=== PATIENT | female | born 2000 | race Caucasian/White ===

== ENCOUNTER 2024-12-28 22:37 | Emergency (ER) | payer BC, SELFPAY ==
[2024-12-28 22:39] VITALS: BP 158/106
--- NOTE | 2024-12-28 23:24 | ED.GENMED ---
History of Present Illness
General
Chief Complaint: Musculo-Skeletal Complaint
Source: patient
Exam Limitations: none
Time Seen by Provider: 12/28/24 23:01
Nursing documentation reviewed up to this point in time: agreed with
History of Present Illness
History of Present Illness:
The patient is a 24-year-old female with no significant past medical history who presents with right ankle pain after a fall down approximately two steps, which occurred one hour prior to the visit. The patient reports twisting the ankle during the
fall. There was no head injury reported. No loss of consciousness. This is the first time the patient has injured this ankle. The patient describes the pain as localized right lateral ankle with moderate soft tissue swelling right lateral ankle.
There is no pain in the knee, no foot pain. Patient was wearing sneakers when the fall occurred. She denies weakness or numbness, no back pain or neck pain. The area is swollen, and the pain is described as moderate.
She denies risk of , last menstrual period normal and on time 1 week ago.
She takes no medicines on a daily basis.
She has not taken anything for pain.
Past History
Past History
ED Past Medical History: Other (Overweight, thoracolumbar back pain)
ED Past Surgical History: None
Social History
Tobacco: Non-smoker
Alcohol: Occasional
Drug: None
Personal: Single
Living: with family
Employment: Employed
Family History
Family History: Other (Noncontributory)
Phy Exam
Physical Exam
Physical Exam:
GENERAL: This is a 24-year-old female who appears her stated age, bright and alert, pleasant, appears in no acute distress. Father is accompanying.
EYE: The head is normocephalic, atraumatic. anicteric
NECK: Supple, nontender
ENT: oral mucosa is moist. No rhinorrhea.
CARDIAC: Regular rate and rhythm. no murmur.
LUNGS: Clear breath sounds bilaterally, no acute respiratory distress, no wheezes/rales/rhonchi
ABDOMEN: Soft, nondistended, without focal tenderness
NEUROLOGICAL: Alert and oriented x3, no focal neuro deficits.
SKIN: Warm and dry, normal color, skin intact. No rash.
MUSCULOSKELETAL: No C/C/E. peripheral pulses are full and equal b/l. Right ankle with moderate soft tissue swelling lateral aspect with moderate tenderness to palpation lateral aspect. Mildly restricted range of motion of right ankle related to
pain. There is no tenderness to the lower leg nor knee nor tenderness to the foot. No ecchymosis.
PSYCH: Normal and appropriate interaction.
Course
Orders/Labs/Results
Orders:
Orders
12/28/24 22:43
Ankle, Right 3 view CR [CR Ankle - Right Min 3 Views *] Urgent
Comment:
Reason For Exam: FALL
12/28/24 23:22
Ice Pack-Treatment DIRECTED
Location: right lateral ankle
Ortho Boot Right- Treatment ONCE
Short or tall?: Tall
Splints/Slings/Crut- Treatment ONCE
Crutches: Yes
Ibuprofen [Motrin] 600 mg PO NOW STA
Vital Signs
Initial and Last Documented VS:
Initial Vital Signs
Temp Pulse Resp BP Pulse Ox
98.6 F 100 18 158/106 98
12/28/24 22:39 12/28/24 22:39 12/28/24 22:39 12/28/24 22:39 12/28/24 22:39
Last Documented Vital Signs
Temp Pulse Resp BP Pulse Ox
98.6 F 100 18 158/106 98
12/28/24 22:39 12/28/24 22:39 12/28/24 22:39 12/28/24 22:39 12/28/24 22:39
MDM/Problems Addressed
Differential Diagnosis Includes:
The Differential Diagnosis includes, in no particular order and is not limited to:
1. Ankle sprain (suspected anterior talofibular ligament)
2. Ankle fracture
3. Tendinopathy
4. Ligamentous injury
5. Contusion
6. [place]-Schlatter�s disease
7. Ankle dislocation
8. Syndesmotic injury
9. Achilles tendinitis
10. Osteochondritis dissecans
MDM/Problems Addressed:
Primary concern for right ankle sprain versus fracture.
X-ray obtained. Interpreted by myself shows no evidence of fracture. No dislocation. Mild soft tissue swelling laterally.
History, exam and x-ray consistent with acute right ankle sprain strain�talofibular ligament sprain.
Patient will be placed in an Ortho boot and provided with crutches. Weightbearing as tolerated.
Offered pain medication either injectable Toradol versus ibuprofen. She elects ibuprofen. Will provide prescription for ibuprofen as well.
Will place ice to ankle and recommend ice to the swollen area over the first 48 hours, followed by moist heat as needed.
Will refer to orthopedics for follow-up.
*Radiology
Radiology exam reviewed: preliminary read by ED provider (X-ray shows no evidence of fracture. Soft tissue swelling laterally)
*Pulse Oximetry
SaO2: 98
Oxygen Mode of Delivery: Room air
Patient hypoxic: no
*Critical Care Note
Total Time (30-74mins, 75-104mins- exclusive of procedures): Not Applicable
ED Attending Note
-
Portions of this chart may have been created with voice recognition software.� Occasional wrong word or��sound alike� substitutions may have occurred due to the inherent limitations of voice recognition software.
Discharge Plan
Departure
Patient Disposition: Home (Routine Discharge)
Date of Disposition: 12/28/24
Time of Disposition: 23:33
Patient with high blood pressure during this ER visit?: Yes
Condition: Good
Discharge Problem:
Inversion sprain of right ankle
Instructions: How to Use Crutches, Ankle sprain - ED (DC), BLOOD PRESSURE
Prescriptions:
New
ibuprofen 600 mg tablet
600 mg PO Q6H PRN (Reason: fever or pain) Qty: 30 0RF
Referrals:
Noe García MD [Active, Orthopedics] - Call in 1-3 days for appt
Miranda Contreras DO [Non-Admitting Privileges, Family Practice] - Call in 1-3 days for appt
Interventions
Interventions:
*Risk Screen - Suicide Last Done: 12/28/24 22:39
*Neglect/Abuse Screening Last Done: 12/28/24 22:39
Discharge Date and Time
Print Language: GREEN[place]
[2024-12-28] MEDS: MOTRIN 600 MG PO (23:43)
[2024-12-29 00:04] VITALS: BP 139/90
== END 2024-12-29 00:13 | disposition home or self-care (01) ==
LOC: EMR 22:37
PROVIDERS: EMERGENCY PHYSICIAN Emergency Medicine
DX: S93.491A Sprain of other ligament of right ankle, initial encounter (principal); W10.9XXA Fall (on) (from) unspecified stairs and steps, initial encounter; X50.1XXA Overexertion from prolonged static or awkward postures, initial encounter; R03.0 Elevated blood-pressure reading, without diagnosis of hypertension; E66.3 Overweight
CPT/HCPCS: 99283; 73610